=== PATIENT | male | born 1950 | race Caucasian/White ===

== ENCOUNTER → 2020-09-19 07:42 | Outpatient (BNVA) | payer MEDICARE, OTHER, SELFPAY | PROVIDERS: Family Provider Internal Medicine; PCP Internal Medicine; Visit Provider Urology | DX: Z12.5 Encounter for screening for malignant neoplasm of prostate (principal); R79.89 Other specified abnormal findings of blood chemistry; N40.1 Benign prostatic hyperplasia with lower urinary tract symptoms; N13.8 Other obstructive and reflux uropathy | CPT/HCPCS: 81003; 84403; G0103 ==

== ENCOUNTER 2020-11-12 05:14 | Outpatient (CLI) | payer MEDICARE, OTHER, SELFPAY ==
[2020-11-12 05:52] VITALS: BP 178/75; PULSE 74; RESP 20; TEMP 36.8; O2SAT 98; BMI 30.5
--- NOTE | 2020-11-12 06:57 | ED_ITS ---
HPI - General Adult History of Present Illness: HPI narrative: [facility] due to COVID-19. Discussed at length with patient about signs and symptoms and any allergic reaction responses. Patient had no further questions and elected to proceed with monoclonal antibody infusion. Nursing staff will monitor. Patient has had no shortness of breath no fever. Pulse ox greater than 92% on room air Onset (ago): day(s) Severity: mild Associated symptoms: Deny chest pain, dyspnea, headache(s), nausea, rash, palpitations or vomiting Review of Systems General: Reports: 10 or more systems reviewed and unremarkable except in HPI and below Const: Denies: fever(s), chills, body aches or fatigue Eyes: Denies: change in vision or blurry vision ENMT: Denies: throat pain, hoarseness or mouth pain Card: Denies: chest pain, palpitations, irregular heart rhythm, edema, swelling of feet/ankles or lightheadedness Resp: Denies: dyspnea, productive cough, non-productive cough, wheezing or pain on inspiration GI: Denies: abdominal pain, nausea or vomiting : Denies: flank pain, dysuria, urinary frequency, urinary urgency or urinary hesitancy Musc: Denies: neck pain, back pain, extremity pain, extremity swelling, joint pain, joint swelling, joint redness, joint warmth or limited range of motion Skin/Breast: Denies: rash, pruritus, erythema or skin tenderness Neuro: Denies: headache(s), numbness in extremities or weakness in extremities Psych: Denies: anxiety or depression PFSH ED PFSH: Medical History BPH with obstruction/lower urinary tract symptoms Erectile dysfunction Hypogonadism Surgical History History of bilateral knee replacement Family History Father Hypertension Social History Smoking and tobacco status: light tobacco smoker Alcohol intake: current Alcohol intake frequency: holidays/special occasions only Adopted: No Caregiver/support person: No Lives independently: No Household members: spouse Marital status: Current occupational status: employed History of recent travel: No Current gender identity: Male Physical Exam Const: COMMON NORMALS: no acute distress, average body habitus, patient oriented x3, no limitations, healthy appearing, alert and well nourished HENMT: COMMON NORMALS: normocephalic, atraumatic, hearing grossly normal bilaterally, external ears normal, EAC's normal, TM's normal bilaterally, Normal external nose present, Normal nasal mucous membranes and turbinates present, moist oral mucous membranes, oropharynx normal, dentition normal and gingiva normal HEAD & SCALP: normocephalic and atraumatic NOSE: Normal external nose present and Normal nasal mucous membranes and turbinates present EXTERNAL EAR: Yes external ears normal EXTERNAL AUDITORY CANAL: EAC's normal TYMPANIC MEMBRANE: TM's normal bilaterally Neck/C-Spine: COMMON NORMALS: full ROM, no lymphadenopathy, supple, no meningeal signs, no JVD, Thyroid normal and No carotid bruits THYROID: Thyroid normal Chest: COMMONS NORMALS: normal inspection of the chest, normal palpation of entire chest wall, normal inspection of the breasts and normal palpation of the breasts Breast/axilla inspection: Yes normal inspection of the breasts BREAST/AXILLA PALPATION: Yes normal palpation of the breasts Resp: COMMON NORMALS: normal respiratory effort, No retractions, No use of accessory muscles, clear to auscultation bilaterally and percussion normal AUSCULTATION: clear to auscultation bilaterally PERCUSSION: percussion normal Cardio: COMMON NORMALS: no JVD, regular rate, regular rhythm, S1 normal heart sound present, S2 normal heart sound present, No gallops present (Cardio), No clicks present (Cardio), No murmurs present (Cardio), No rub (Cardio) and Peripheral pulses 2+ throughout RATE: regular rate RHYTHM: regular rhythm HEART SOUNDS: S1 normal heart sound present and S2 normal heart sound present PERIPHERAL PULSES: Peripheral pulses 2+ throughout GI: COMMON NORMALS: Normal to inspection, nondistended, normoactive bowel sounds present, Soft to palpation, non-tender, No hepatosplenomegaly present, no masses and no bruits PALPATION: Yes Soft to palpation and Yes No hepatosplenomegaly present : COMMON NORMALS: Yes no CVA tenderness BLADDER/KIDNEY EXAM: Yes no CVA tenderness Back/Pelvis: COMMON NORMALS: no CVA tenderness, thoracic and lumbar spine normal to inspection, no thoracic nor lumbar tenderness, thoraco-lumbar ROM normal and straight leg raise negative bilaterally Extremity: COMMON NORMALS: normal to inspection, full ROM, capillary refill normal, no joint enlargement, no clubbing, cyanosis or edema, no calf tenderness and no pedal edema Neuro: COMMON NORMALS: patient oriented x3 SENSORIUM/ORIENTATION: Yes alert MENINGEAL SIGNS: Yes no meningeal signs Course Vital Signs: Vital signs: Vital Signs Temperature 98.3 F 11/12/20 05:52 Pulse Rate 74 11/12/20 05:52 Respiratory Rate 20 H 11/12/20 05:52 Blood Pressure 178/75 11/12/20 05:52 Pulse Oximetry 98 11/12/20 05:52 Discharge Plan Discharge Patient Disposition: Home Prescriptions: No Action amlodipine 10 mg tablet 10 mg PO DAILY RF: 0 lisinopril 10 mg tablet 10 mg PO DAILY RF: 0 hydrochlorothiazide 12.5 mg tablet 12.5 mg PO DAILY RF: 0 albuterol sulfate 0.63 mg/3 mL solution for nebulization 0.63 mg INHALATION QID PRNRF: 0 montelukast [Singulair] 10 mg tablet 10 mg PO DAILY RF: 0 albuterol sulfate [ProAir HFA] 90 mcg/actuation HFA aerosol inhaler 2 puff INHALATION Q6H PRNRF: 0 olopatadine [Pataday Twice Daily Relief] 0.1 % drops 1 drp ophthalmic (eye) BID RF: 0 sildenafil (pulm.hypertension) 20 mg tablet 20 mg PO DIRECTED Qty: 30 RF: 6 tamsulosin 0.4 mg capsule 0.8 mg PO ONCE Qty: 60 RF: 12 testosterone cypionate 200 mg/mL oil 200 mg IM .every other week Qty: 10 RF: 5 Referrals: Ruiz Riggs DO [Primary Care Provider] - Coding Level of Care Code ED [facility] for [facility]
[2020-11-12 07:30] VITALS: BP 130/69; PULSE 64; TEMP 36.8; O2SAT 96
[2020-11-12 08:36] VITALS: BP 133/76; PULSE 68; TEMP 36.9
--- NOTE | 2020-11-21 12:53 | DCPLANNER ---
annual giving manager had message that patient received the monoclonal antibody infusion. annual giving manager called phone number [phone], unable to speak with patient at this time, a voicemail was left for patient to return director of casework phone call.
== END 2020-11-12 05:15 | disposition home or self-care (01) ==
PROVIDERS: Family Provider Internal Medicine; PCP Internal Medicine; Visit Provider Family Medicine
DX: U07.1 COVID-19 (principal)
CPT/HCPCS: 96365

== ENCOUNTER 2021-09-22 12:04 | Outpatient (CLI) | payer MEDICARE, OTHER, SELFPAY ==
[2021-09-22 13:05] LABS: Prostate Specific Antigen Scr 2.15 ng/mL (0-4); Testosterone Total 50.6 ng/dL (193-740)
== END 2021-09-22 12:05 | disposition home or self-care (01) ==
LOC: LAB 12:09
PROVIDERS: Family Provider Internal Medicine; PCP Internal Medicine; Visit Provider Urology
DX: N52.9 Male erectile dysfunction, unspecified (principal); Z12.5 Encounter for screening for malignant neoplasm of prostate; N40.1 Benign prostatic hyperplasia with lower urinary tract symptoms; N13.8 Other obstructive and reflux uropathy; E29.1 Testicular hypofunction
CPT/HCPCS: 51741; 51798; 81003; 84403; 99213; G0103

== ENCOUNTER 2022-01-22 07:19 | Outpatient (CLI) | payer MEDICARE, OTHER, SELFPAY ==
[2022-01-22 08:10] LABS: Testosterone Total - Urology 113 ng/mL (300-1000)
== END 2022-01-22 07:20 | disposition home or self-care (01) ==
LOC: LAB 07:22
PROVIDERS: PCP Internal Medicine; Visit Provider Urology
DX: N52.9 Male erectile dysfunction, unspecified (principal); N40.1 Benign prostatic hyperplasia with lower urinary tract symptoms; N13.8 Other obstructive and reflux uropathy; R79.89 Other specified abnormal findings of blood chemistry
CPT/HCPCS: 36415; 51741; 51798; 81003; 84403; 99213

== ENCOUNTER 2022-06-12 12:55 | Outpatient (RCR) | payer MEDICARE, OTHER, SELFPAY | END 2022-06-16 23:59 | disposition home or self-care (01) | LOC: SPT 12:55 | PROVIDERS: PCP Internal Medicine; Visit Provider Internal Medicine | DX: M25.511 Pain in right shoulder (principal) | CPT/HCPCS: 97110; 97162 ==

== ENCOUNTER 2022-07-16 08:09 | Outpatient (CLI) | payer MEDICARE, OTHER, SELFPAY ==
[2022-07-16 09:15] LABS: Testosterone Total - Urology 256 ng/mL (300-1000)
== END 2022-07-16 08:10 | disposition home or self-care (01) ==
LOC: LAB 08:14
PROVIDERS: PCP Internal Medicine; Visit Provider Urology
DX: R79.89 Other specified abnormal findings of blood chemistry (principal)
CPT/HCPCS: 36415; 84403

== ENCOUNTER → 2022-07-21 07:48 | Outpatient (BNVA) | payer MEDICARE, OTHER, SELFPAY | PROVIDERS: PCP Internal Medicine; Visit Provider Urology | DX: R79.89 Other specified abnormal findings of blood chemistry (principal); N40.1 Benign prostatic hyperplasia with lower urinary tract symptoms; N13.8 Other obstructive and reflux uropathy; N52.9 Male erectile dysfunction, unspecified | CPT/HCPCS: 81003; 99213 ==

== ENCOUNTER → 2023-08-25 08:03 | Outpatient (BNVA) | payer MEDICARE, OTHER, SELFPAY | PROVIDERS: PCP Internal Medicine; Visit Provider Podiatrist Foot & Ankle Surgery | DX: M25.572 Pain in left ankle and joints of left foot (principal); M76.812 Anterior tibial syndrome, left leg | CPT/HCPCS: 73610; 99213 ==